=== PATIENT | male | born 1955 | race Two or more races ===

== ENCOUNTER 2020-12-24 14:47 | Emergency (ER) | payer OTHER ==
[~2020-12-24] VITALS: Ht 170.2 cm; Wt 79.4 kg
[2020-12-24] MEDS ORDERED: SENNA LAXATIVE8.6 MG (15:22)
[2020-12-24] MEDS ORDERED: DUI500 (15:23)
[2020-12-25] MEDS ORDERED: MELATONIN10 M2 PO (01:02)
[2020-12-25] MEDS ORDERED: ZINC SULFATE220 M2 PO (01:02)
[2020-12-25] MEDS ORDERED: DECADRON6 MG PO (01:02)
[2020-12-25] MEDS ORDERED: VITAMIN D3-ALO1 EACH PO (01:02)
[2020-12-25] MEDS ORDERED: AZITHROMYCIN500 MG PO (01:02)
[2020-12-25] MEDS ORDERED: VITAMIN C WIT1000 MG PO (01:02)
[2020-12-25] MEDS ORDERED: ACETAMINOPHEN650 M2 PO (01:02)
[2020-12-25] MEDS ORDERED: IVERMECTIN3 MG PO (01:02)
[2020-12-25] MEDS ORDERED: COLCHICINE0.6 MG PO (01:02)
== END 2020-12-25 01:17 | disposition home or self-care (01) ==
LOC: ER 14:47
DX: R50.9 Fever, unspecified (principal); R10.11 Right upper quadrant pain; R05 Cough; Z20.822 Contact with and (suspected) exposure to COVID-19